=== PATIENT | male | born 1960 | race Caucasian/White ===

== ENCOUNTER 2016-05-16 12:40 | Outpatient (CLI) | payer OTHER | END 2016-05-16 12:41 | disposition home or self-care (01) | DX: D64.9 Anemia, unspecified (principal); R10.9 Unspecified abdominal pain; G89.29 Other chronic pain; E55.9 Vitamin D deficiency, unspecified; K50.90 Crohn's disease, unspecified, without complications ==

== ENCOUNTER 2016-08-13 09:25 | Outpatient (CLI) | payer OTHER | END 2016-08-13 23:59 | DX: E55.9 Vitamin D deficiency, unspecified (principal); G89.4 Chronic pain syndrome; R73.01 Impaired fasting glucose; K50.90 Crohn's disease, unspecified, without complications; I50.9 Heart failure, unspecified; I10 Essential (primary) hypertension ==

== ENCOUNTER 2016-12-08 09:11 | Outpatient (CLI) | payer OTHER ==
[2016-12-08 12:51] LABS: ALBUMIN/GLOBULIN RATIO 1.2 (1.0-2.2); BILIRUBIN,TOTAL 1.1 mg/dL (0.2-1.0); BUN - BLOOD UREA NITROGEN 16 mg/dL (6-20); CALCIUM 9.4 mg/dL (8.5-10.3); CARBON DIOXIDE - CO2 26 mmol/L (21-32); CHLORIDE 100 mmol/L (101-111); CHOL/HDL RATIO 4.5 (<5.0); CHOLESTEROL 143 mg/dL; CREATININE 1.1 mg/dL (0.6-1.2); GFR - MDRD 69 (>89); GLUCOSE 100 mg/dL (70-100); HDL CHOLESTEROL 32 mg/dL; LDL/HDL RATIO 1.9 (<3.6); POTASSIUM 4.1 mmol/L (3.5-5.0); SODIUM 135 mmol/L (135-145); TRIGLYCERIDES 257 mg/dL; VLDL CHOLESTEROL 51 mg/dL
[2016-12-08 17:46] LABS: HEMOGLOBIN A1C 0.63 g/dL
== END 2016-12-08 09:12 | disposition home or self-care (01) ==
LOC: LAB.WCP 09:11
PROVIDERS: ATTEND Family Medicine
DX: G89.4 Chronic pain syndrome (principal); E55.9 Vitamin D deficiency, unspecified; R73.01 Impaired fasting glucose; I50.9 Heart failure, unspecified; I10 Essential (primary) hypertension
CPT/HCPCS: 36415; 80053; 80061; 82306; 83036

== ENCOUNTER 2017-03-11 11:09 | Outpatient (CLI) | payer OTHER ==
[2017-03-11 18:59] LABS: BASOPHILS # (AUTO) 0.1 10^3/uL (0.0-0.1); BASOPHILS % (AUTO) 1.2 %; EOSINOPHILS # (AUTO) 0.4 10^3/uL (0.0-0.7); EOSINOPHILS % (AUTO) 4.9 %; HGB - HEMOGLOBIN 16.1 g/dL (14.0-18.0); LYMPHOCYTES # (AUTO) 3.4 10^3/uL (1.5-3.5); LYMPHOCYTES % (AUTO) 44.2 %; MEAN CORPUSCULAR HEMOGLOBIN 32.9 pg (27.0-31.0); MEAN CORPUSCULAR HGB CONC 33.4 g/dL (32.0-36.0); MEAN CORPUSCULAR VOLUME 98.2 fL (80.0-94.0); MEAN PLATELET VOLUME 10.5 fL (7.4-11.4); MONOCYTES # (AUTO) 0.8 10^3/uL (0.0-1.0); MONOCYTES % (AUTO) 10.8 %; NEUTROPHILS % (AUTO) 38.9 %; NUCLEATED RED BLOOD CELLS AUTO 0.2 /100WBC; RED BLOOD COUNT 4.89 10^6/uL (4.70-6.10); RED CELL DISTRIBUTION WIDTH 14.2 % (12.0-15.0); UNCORRECTED WHITE BLOOD COUNT 7.7 x10^3/uL; WHITE BLOOD COUNT 7.7 x10^3/uL (4.8-10.8)
[2017-03-11 19:21] LABS: ALBUMIN/GLOBULIN RATIO 1.1 (1.0-2.2); BILIRUBIN,TOTAL 0.8 mg/dL (0.2-1.0); CREATININE 1.1 mg/dL (0.6-1.2); POTASSIUM 4.4 mmol/L (3.5-5.0); TOTAL PROTEIN 7.5 g/dL (6.7-8.2); URIC ACID 7.7 mg/dL (2.6-7.2)
== END 2017-03-11 11:10 | disposition home or self-care (01) ==
LOC: LAB.WCP 11:09
PROVIDERS: ATTEND Family Medicine
DX: I10 Essential (primary) hypertension (principal); E55.9 Vitamin D deficiency, unspecified; M10.9 Gout, unspecified; D64.9 Anemia, unspecified
CPT/HCPCS: 36415; 80053; 82306; 84550; 85025

== ENCOUNTER 2017-04-19 14:40 | Emergency (ER) | payer OTHER ==
[2017-04-19] MEDS ORDERED: ALBUTEROL NEB 2.5 MG/3 ML INH STA (15:20)
--- NOTE | 2017-04-19 15:22 | ED Physician Documentation ---
PD HPI URI - Stated complaint Stated Complaint: COUGH,CONGESTION,SOA,CHEST TIGHTNESS - Chief complaint Chief Complaint: Resp - History obtained from History obtained from: Patient - History of Present Illness Timing - onset: Other (Sick for 3 days with productive cough, green sputum, shortness of breath and wheezing. No fevers or chills but he has had some body aches and nasal congestion. He is on Remicade for Crohn's disease.) Review of Systems Constitutional: reports: Fatigue. denies: Fever, Chills Ears: denies: Ear pain Nose: reports: Rhinorrhea / runny nose, Congestion, Sinus pressure / pain Throat: denies: Sore throat Respiratory: reports: Dyspnea, Cough, Wheezing. denies: Hemoptysis PD PAST MEDICAL HISTORY - Past Medical History Cardiovascular: Congestive heart failure, Hypertension GI: Crohn's disease : Kidney stones - Past Surgical History Past Surgical History: Yes General: Cholecystectomy, Bowel surgery - Present Medications Home Medications: Ambulatory Orders Medication Instructions Recorded Confirmed Atenolol 100 mg PO DAILY 10/13/12 12/13/15 Cholecalciferol (Vitamin D3) 50,000 unit PO ONCE 10/13/12 12/13/15 [Vitamin D-3] Cyanocobalamin [Vitamin B-12] 1,000 mcg IM ONCE 10/13/12 12/13/15 Furosemide [Lasix] 40 mg PO DAILY PRN 10/13/12 12/13/15 Lisinopril 40 mg PO DAILY 10/13/12 12/13/15 Oxycodone HCl [Oxycontin] 10 mg PO BID 10/13/12 12/13/15 oxyCODONE [Roxicodone] 5 - 10 mg PO Q4-6H PRN 10/13/12 12/13/15 Felodipine [Felodipine ER] 1 tab PO DAILY 12/13/15 12/13/15 Albuterol Sulfate [Proventil Hfa 1 - 2 puffs IH Q4H PRN #1 04/19/17 Inhaler] hfa.aer.ad Doxycycline Hyclate 100 mg PO BID #20 tablet 04/19/17 guaiFENesin/CODEINE [Robitussin AC] 5 - 10 ml PO Q6H PRN #120 ml 04/19/17 predniSONE [Deltasone] 60 mg PO DAILY 5 Days tablet 04/19/17 - Allergies Allergies/Adverse Reactions: Allergies Allergy/AdvReac Type Severity Reaction Status Date / Time No Known Drug Allergies Allergy Verified 10/13/12 16:46 - Social History Does the pt smoke?: No Smoking Status: Never smoker Does the pt drink ETOH?: Yes Does the pt have substance abuse?: No - Immunizations Immunizations are current?: Yes PD ED PE NORMAL - Vitals Vital signs reviewed: Yes - General General: Alert and oriented X 3, No acute distress - HEENT HEENT: PERRL, EOMI, Ears normal, Moist mucous membranes, Pharynx benign - Neck Neck: Supple, no meningeal sign, No bony TTP - Cardiac Cardiac: RRR, No murmur - Respiratory Respiratory: No respiratory distress, Other (Diffuse moderate wheezes with good air motion.) - Abdomen Abdomen: Non tender - Neuro Neuro: Alert and oriented X 3, Normal speech - Psych Psych: Normal mood, Normal affect Results - Vitals Vitals: Vital Signs - 24 hr 04/19/17 14:59 Temperature 36.6 C Heart Rate 79 Respiratory 22 Rate Blood Pressure 135/83 H O2 Saturation 97 Oxygen O2 Source Nasal cannula PD MEDICAL DECISION MAKING - ED course ED course: 56-year-old gentleman, functionally immune compromise from the Remicade with URI symptoms and diffuse wheezing, because of his history we will place on antibiotics because of the immune suppression. Also steroids, beta agonist and cough syrup. Departure - Departure Disposition: 01 Home, Self Care Clinical Impression: Immunosuppression, Bronchitis Condition: Good Record reviewed to determine appropriate education?: Yes Instructions: ED Bronchitis Asthmatic Prescriptions: Albuterol Sulfate [Proventil Hfa Inhaler] 1 - 2 puffs IH Q4H PRN #1 hfa.aer.ad PRN Reason: Cough Doxycycline Hyclate 100 mg PO BID #20 tablet guaiFENesin/CODEINE [Robitussin AC] 5 - 10 ml PO Q6H PRN #120 ml PRN Reason: Cough predniSONE [Deltasone] 60 mg PO DAILY 5 Days tablet Comments: Call your doctor to arrange a follow-up appointment, make the next available appointment. In the interim, return anytime if worse or if new symptoms develop. Your blood pressure was elevated today on check into the emergency department. This does not mean that you have hypertension, it is a common phenomenon to come to the emergency department and have elevated blood pressure. I recommend that you see your primary care physician within the week to have it rechecked when you are feeling better.
[2017-04-19 15:53] VITALS: BP 141/90
== END 2017-04-19 15:55 | disposition home or self-care (01) ==
LOC: ED 14:40
DX: J40 Bronchitis, not specified as acute or chronic (principal); D89.9 Disorder involving the immune mechanism, unspecified; I11.0 Hypertensive heart disease with heart failure; I50.9 Heart failure, unspecified
CPT/HCPCS: 94640; 94664; 99283; J7613

== ENCOUNTER 2017-08-28 08:18 | Outpatient (CLI) | payer OTHER ==
[2017-08-28 12:35] LABS: BASOPHILS # (AUTO) 0.1 10^3/uL (0.0-0.1); BASOPHILS % (AUTO) 0.9 %; EOSINOPHILS # (AUTO) 0.5 10^3/uL (0.0-0.7); EOSINOPHILS % (AUTO) 7.2 %; LYMPHOCYTES # (AUTO) 3.1 10^3/uL (1.5-3.5); LYMPHOCYTES % (AUTO) 46.6 %; MEAN CORPUSCULAR HEMOGLOBIN 32.8 pg (27.0-31.0); MEAN CORPUSCULAR HGB CONC 33.6 g/dL (32.0-36.0); MEAN CORPUSCULAR VOLUME 97.4 fL (80.0-94.0); MEAN PLATELET VOLUME 11.2 fL (7.4-11.4); MONOCYTES # (AUTO) 0.7 10^3/uL (0.0-1.0); NEUTROPHILS # (AUTO) 2.4 10^3/uL (1.5-6.6); NEUTROPHILS % (AUTO) 35.3 %; PLT - PLATELET COUNT 143 10^3/uL (130-450); RED CELL DISTRIBUTION WIDTH 13.1 % (12.0-15.0); WHITE BLOOD COUNT 6.7 x10^3/uL (4.8-10.8)
[2017-08-28 13:14] LABS: HB2 TOTAL 17.8 g/dL; HEMOGLOBIN A1C 0.56 g/dL
[2017-08-28 14:33] LABS: ALBUMIN 4.2 g/dL (3.2-5.5); ALBUMIN/GLOBULIN RATIO 1.3 (1.0-2.2); ALKALINE PHOSPHATASE 55 IU/L (42-121); ALT ALANINE AMINOTRANSFERASE 30 IU/L (10-60); AST ASPARTATE AMINOTRANSFERASE 32 IU/L (10-42); BILIRUBIN,TOTAL 1.3 mg/dL (0.2-1.0); BUN - BLOOD UREA NITROGEN 19 mg/dL (6-20); CALCIUM 9.2 mg/dL (8.5-10.3); CARBON DIOXIDE - CO2 26 mmol/L (21-32); CHLORIDE 98 mmol/L (101-111); CHOL/HDL RATIO 3.7 (<5.0); CHOLESTEROL 106 mg/dL; GFR - MDRD 77 (>89); GLUCOSE 90 mg/dL (70-100); HDL CHOLESTEROL 29 mg/dL; LDL CHOLESTEROL,CALCULATED 35 mg/dL; LDL/HDL RATIO 1.2 (<3.6); SODIUM 131 mmol/L (135-145); TOTAL PROTEIN 7.5 g/dL (6.7-8.2); VLDL CHOLESTEROL 42 mg/dL
== END 2017-08-28 08:19 | disposition home or self-care (01) ==
LOC: LAB.WCP 08:18
PROVIDERS: ATTEND Family Medicine
DX: Z00.00 Encounter for general adult medical examination without abnormal findings (principal); I10 Essential (primary) hypertension; R73.01 Impaired fasting glucose; G62.9 Polyneuropathy, unspecified; Z12.5 Encounter for screening for malignant neoplasm of prostate; D64.9 Anemia, unspecified
CPT/HCPCS: 36415; 80053; 80061; 83036; 83721; 84153; 85025

== ENCOUNTER 2017-11-07 15:02 | Emergency (ER) | payer OTHER ==
[2017-11-07] MEDS ORDERED: SODIUM CHLORIDE 0.9% 1,000 ML IV ONE ×2 (15:20→17:39)
[2017-11-07] MEDS ORDERED: LACTATED RINGERS 1,000 ML IV STA (15:20)
--- NOTE | 2017-11-07 15:22 | ED Physician Documentation ---
PD HPI ABD PAIN - Stated complaint Stated Complaint: DIZZY/LIGHT HEADED/SEVERE THIRST - Chief complaint Chief Complaint: Abd Pain - History obtained from History obtained from: Patient - History of Present Illness Timing - onset: Other (This is a 57-year-old gentleman with Crohn's disease who about 6 days ago started to have increased epigastric pain and diarrhea. He had a friend who got sick around the same time with diarrhea but was only sick for about 2 days. There is a little nausea with it but no significant vomiting and no fevers. He feels like it is less severe than prior Crohn's flares. No recent travel. Now he is worried because every time he stands up he gets dizzy and is nearly falling from the dizziness.) Review of Systems Constitutional: reports: Fatigue. denies: Fever, Chills GI: reports: Abdominal Pain, Nausea, Diarrhea. denies: Vomiting, Constipation, Hematemesis, Bloody / black stool : denies: Dysuria, Frequency PD PAST MEDICAL HISTORY - Past Medical History Cardiovascular: Congestive heart failure, Hypertension GI: Crohn's disease : Kidney stones - Past Surgical History Past Surgical History: Yes General: Cholecystectomy, Bowel surgery - Present Medications Home Medications: Ambulatory Orders Medication Instructions Recorded Confirmed Atenolol 100 mg PO DAILY 10/13/12 12/13/15 Cholecalciferol (Vitamin D3) 50,000 unit PO ONCE 10/13/12 12/13/15 [Vitamin D-3] Cyanocobalamin [Vitamin B-12] 1,000 mcg IM ONCE 10/13/12 12/13/15 Furosemide [Lasix] 40 mg PO DAILY PRN 10/13/12 12/13/15 Lisinopril 40 mg PO DAILY 10/13/12 12/13/15 Oxycodone HCl [Oxycontin] 10 mg PO BID 10/13/12 12/13/15 oxyCODONE [Roxicodone] 5 - 10 mg PO Q4-6H PRN 10/13/12 12/13/15 Felodipine [Felodipine ER] 1 tab PO DAILY 12/13/15 12/13/15 Albuterol Sulfate [Proventil Hfa 1 - 2 puffs IH Q4H PRN #1 04/19/17 Inhaler] hfa.aer.ad Doxycycline Hyclate 100 mg PO BID #20 tablet 04/19/17 Loperamide [Imodium] 2 mg PO QID PRN #10 capsule 11/07/17 predniSONE [Deltasone] 20 mg PO [id number] #21 tab 11/07/17 - Allergies Allergies/Adverse Reactions: Allergies Allergy/AdvReac Type Severity Reaction Status Date / Time No Known Drug Allergies Allergy Verified 11/07/17 15:10 - Social History Does the pt smoke?: No Smoking Status: Never smoker Does the pt drink ETOH?: Yes Does the pt have substance abuse?: No - Family History Family history: reports: Non contributory - Immunizations Immunizations are current?: Yes PD ED PE NORMAL - Vitals Vital signs reviewed: Yes - General General: Alert and oriented X 3, No acute distress - HEENT HEENT: Other (Dry mucous membranes) - Cardiac Cardiac: RRR, No murmur - Respiratory Respiratory: No respiratory distress, Clear bilaterally - Abdomen Abdomen: Normal bowel sounds, Soft, Non tender, Other (Ex lap and cholecystectomy scars) - Derm Derm: Normal color, Warm and dry, No rash - Extremities Extremities: No edema, No calf tenderness / cord - Neuro Neuro: Alert and oriented X 3, Normal speech Results - Vitals Vitals: Vital Signs - 24 hr 11/07/17 11/07/17 15:07 16:57 Temperature 36.4 C L Heart Rate 87 66 Respiratory 16 14 Rate Blood Pressure 174/153 H 110/59 L O2 Saturation 98 98 Oxygen O2 Source Room air - Labs Labs: Laboratory Tests 11/07/17 11/07/17 15:46 15:46 WBC 9.9 RBC 4.67 L Hgb 15.3 Hct 44.7 MCV 95.6 H MCH 32.8 H MCHC 34.3 RDW 12.4 Plt Count 178 MPV 9.6 Neut # (Auto) 6.6 Lymph # (Auto) 1.6 Page # (Auto) 1.5 H Eos # (Auto) 0.1 Baso # (Auto) 0.0 Absolute Nucleated RBC 0.01 Nucleated RBC % 0.1 Sodium 128 L Potassium 3.7 Chloride 92 L Carbon Dioxide 27 Anion Gap 9.0 BUN 34 H Creatinine 2.0 H Estimated GFR (MDRD) 34 L Glucose 133 H Calcium 9.3 Magnesium 1.6 L Total Bilirubin 1.4 H AST 21 ALT 23 Alkaline Phosphatase 68 Total Protein 7.8 Albumin 3.7 Globulin 4.1 Albumin/Globulin Ratio 0.9 L Lipase 24 PD MEDICAL DECISION MAKING - ED course ED course: 57-year-old gentleman with history of Crohn's disease presents with an apparent flare with 5 days of diarrhea. Also might be a viral illness, less likely given the time course. Unlikely be bacterial given the lack of stomach pain or fever or white count. Labs as shown with prerenal azotemia and a creatinine bump from his baseline of 1.0-2.0. He was administered 3 L of IV fluids with symptomatic and significant improvement in his symptoms. He was offered observation in the hospital but plans to follow closely with his physician in a few days for recheck and probably will need repeat labs then 2. - Sepsis Event Vital Signs: Vital Signs - 24 hr 11/07/17 11/07/17 15:07 16:57 Temperature 36.4 C L Heart Rate 87 66 Respiratory 16 14 Rate Blood Pressure 174/153 H 110/59 L O2 Saturation 98 98 Oxygen O2 Source Room air Departure - Departure Disposition: 01 Home, Self Care Clinical Impression: Dehydration Diarrhea Qualifiers: Diarrhea type: unspecified type Qualified Code(s): R19.7 - Diarrhea, unspecified Acute Crohn's disease Qualifiers: Digestive disease complication type: other complication Qualified Code(s): K50.918 - Crohn's disease, unspecified, with other complication Condition: Good Record reviewed to determine appropriate education?: Yes Instructions: Disease Crohn Dc Prescriptions: Loperamide [Imodium] 2 mg PO QID PRN #10 capsule PRN Reason: Diarrhea predniSONE [Deltasone] 20 mg PO [id number] #21 tab Comments: Stop your lisinopril and lasix for now, follow-up with Dr. Munoz as scheduled in a few days and I suspect he will want to do repeat labs based on a creatinine of 2.0 today and BUN of 34. Return if worsening. Discharge Date/Time: 11/07/17 18:48
[2017-11-07 15:59] LABS: BASOPHILS % (AUTO) 0.5 %; EOSINOPHILS # (AUTO) 0.1 10^3/uL (0.0-0.7); HGB - HEMOGLOBIN 15.3 g/dL (14.0-18.0); LYMPHOCYTES # (AUTO) 1.6 10^3/uL (1.5-3.5); LYMPHOCYTES % (AUTO) 16.4 %; MEAN CORPUSCULAR HEMOGLOBIN 32.8 pg (27.0-31.0); MEAN CORPUSCULAR HGB CONC 34.3 g/dL (32.0-36.0); MEAN CORPUSCULAR VOLUME 95.6 fL (80.0-94.0); MEAN PLATELET VOLUME 9.6 fL (7.4-11.4); MONOCYTES # (AUTO) 1.5 10^3/uL (0.0-1.0); NEUTROPHILS # (AUTO) 6.6 10^3/uL (1.5-6.6); NEUTROPHILS % (AUTO) 67.1 %; PLT - PLATELET COUNT 178 10^3/uL (130-450); RED BLOOD COUNT 4.67 10^6/uL (4.70-6.10); RED CELL DISTRIBUTION WIDTH 12.4 % (12.0-15.0); WHITE BLOOD COUNT 9.9 x10^3/uL (4.8-10.8)
[2017-11-07 16:13] LABS: ALBUMIN 3.7 g/dL (3.2-5.5); ALBUMIN/GLOBULIN RATIO 0.9 (1.0-2.2); BILIRUBIN,TOTAL 1.4 mg/dL (0.2-1.0); CALCIUM 9.3 mg/dL (8.5-10.3); MAGNESIUM 1.6 mg/dL (1.7-2.8); TOTAL PROTEIN 7.8 g/dL (6.7-8.2)
[2017-11-07 16:58] VITALS: BP 110/59
== END 2017-11-07 18:48 | disposition home or self-care (01) ==
LOC: ED 15:02
DX: K50.918 Crohn's disease, unspecified, with other complication (principal); E86.0 Dehydration; R19.7 Diarrhea, unspecified; I10 Essential (primary) hypertension; R79.9 Abnormal finding of blood chemistry, unspecified
CPT/HCPCS: 36415; 80053; 83690; 83735; 85025; 96360; 96361; 99283; 99284; J7120

== ENCOUNTER 2017-11-10 13:13 | Outpatient (CLI) | payer OTHER ==
[2017-11-10 19:03] LABS: ALBUMIN 3.5 g/dL (3.2-5.5); ALBUMIN/GLOBULIN RATIO 0.9 (1.0-2.2); CREATININE 1.1 mg/dL (0.6-1.2); TOTAL PROTEIN 7.6 g/dL (6.7-8.2)
== END 2017-11-10 13:14 | disposition home or self-care (01) ==
LOC: LAB.WCP 13:13
PROVIDERS: ATTEND Family Medicine
DX: K50.90 Crohn's disease, unspecified, without complications (principal)
CPT/HCPCS: 36415; 80053

== ENCOUNTER 2018-01-11 09:24 | Outpatient (CLI) | payer OTHER ==
[2018-01-11 14:14] LABS: BASOPHILS % (AUTO) 0.7 %; EOSINOPHILS # (AUTO) 0.4 10^3/uL (0.0-0.7); EOSINOPHILS % (AUTO) 7.2 %; HGB - HEMOGLOBIN 16.1 g/dL (14.0-18.0); LYMPHOCYTES # (AUTO) 2.3 10^3/uL (1.5-3.5); LYMPHOCYTES % (AUTO) 40.1 %; MEAN CORPUSCULAR HEMOGLOBIN 33.2 pg (27.0-31.0); MEAN CORPUSCULAR HGB CONC 33.9 g/dL (32.0-36.0); MEAN PLATELET VOLUME 10.3 fL (7.4-11.4); MONOCYTES # (AUTO) 0.6 10^3/uL (0.0-1.0); MONOCYTES % (AUTO) 10.2 %; NEUTROPHILS # (AUTO) 2.4 10^3/uL (1.5-6.6); NEUTROPHILS % (AUTO) 41.8 %; PLT - PLATELET COUNT 126 10^3/uL (130-450); RED BLOOD COUNT 4.85 10^6/uL (4.70-6.10); RED CELL DISTRIBUTION WIDTH 13.7 % (12.0-15.0); WHITE BLOOD COUNT 5.8 x10^3/uL (4.8-10.8)
[2018-01-11 14:38] LABS: HB2 TOTAL 17.3 g/dL; HEMOGLOBIN A1C 0.54 g/dL
[2018-01-11 14:42] LABS: ALBUMIN 3.8 g/dL (3.2-5.5); BILIRUBIN,TOTAL 0.9 mg/dL (0.2-1.0); CALCIUM 9.7 mg/dL (8.5-10.3); CREATININE 1.1 mg/dL (0.6-1.2); TOTAL PROTEIN 7.5 g/dL (6.7-8.2)
== END 2018-01-11 09:25 | disposition home or self-care (01) ==
LOC: LAB.WCP 09:24
PROVIDERS: ATTEND Family Medicine
DX: R73.01 Impaired fasting glucose (principal); E55.9 Vitamin D deficiency, unspecified; I10 Essential (primary) hypertension; D64.9 Anemia, unspecified
CPT/HCPCS: 36415; 80053; 82306; 83036; 85025

== ENCOUNTER 2018-08-25 08:38 | Outpatient (CLI) | payer OTHER ==
--- NOTE | 2018-08-25 09:38 | CT Report ---
Reason: KIDNEY STONE,HEMATURIA Procedure Date: 08/25/2018 Accession Number: [id number] / [id number] Procedure: CT - Abdomen/Pelvis WO CPT Code: FULL RESULT: EXAM: CT ABDOMEN AND PELVIS (CT KUB) EXAM DATE: 08/25/2018 09:06 AM. CLINICAL HISTORY: Kidney stone, hematuria. COMPARISONS: ABDOMEN/PELVIS W/ 01/14/2016 11:25 AM. TECHNIQUE: Routine axial helical CT imaging was performed through the abdomen and pelvis without IV contrast. Reconstructions: Coronal and sagittal. In accordance with CT protocol optimization, one or more of the following dose reduction techniques were utilized for this exam: automated exposure control, adjustment of mA and/or KV based on patient size, or use of iterative reconstructive technique. FINDINGS: There is a nonobstructing 5 mm right renal calculus. There is a suggestion of asymmetric right-sided bladder wall thickening on noncontrast examination. The patient is status post cholecystectomy. Moderate atherosclerotic disease is noted. The noncontrast liver, spleen, adrenal glands, left kidney and pancreas are unremarkable with the exception of hepatosplenic calcifications bearing witness to prior granulomatous disease and a calcification within the pancreas which is nonspecific. There is no free air or free fluid and no bowel obstruction. There is no abdominopelvic lymphadenopathy by size criteria. IMPRESSION: Asymmetric thickening of the bladder wall is suspicious for malignancy in the setting of hematuria. Nonobstructing 5 mm right renal calculus. Recommendation: Direct visualization of the bladder by cystogram. DEANNA The call report notification system was initiated by Dr. Robbie Wynn at 09:36 AM on 08/25/2018. ADDENDUM: 08/25/18 10:33 The above call report findings were discussed with KHADAR Krishnan by Dr. Robbie Wynn at 10:33 AM on 08/25/2018.
== END 2018-08-25 08:39 | disposition home or self-care (01) ==
LOC: DI 08:38
PROVIDERS: ATTEND Family Medicine
DX: N20.0 Calculus of kidney (principal); R31.9 Hematuria, unspecified; N32.89 Other specified disorders of bladder
CPT/HCPCS: 74176

== ENCOUNTER 2018-10-15 10:42 | Outpatient (CLI) | payer OTHER ==
[2018-10-15 18:55] LABS: BASOPHILS % (AUTO) 0.5 %; EOSINOPHILS # (AUTO) 0.3 10^3/uL (0.0-0.7); EOSINOPHILS % (AUTO) 4.5 %; HGB - HEMOGLOBIN 16.2 g/dL (14.0-18.0); LYMPHOCYTES # (AUTO) 2.4 10^3/uL (1.5-3.5); LYMPHOCYTES % (AUTO) 36.3 %; MEAN CORPUSCULAR HGB CONC 31.5 g/dL (32.0-36.0); MEAN CORPUSCULAR VOLUME 101.4 fL (80.0-94.0); MEAN PLATELET VOLUME 12.3 fL (7.4-11.4); MONOCYTES # (AUTO) 0.6 10^3/uL (0.0-1.0); MONOCYTES % (AUTO) 8.8 %; NEUTROPHILS # (AUTO) 3.3 10^3/uL (1.5-6.6); NEUTROPHILS % (AUTO) 49.7 %; PLT - PLATELET COUNT 130 10^3/uL (130-450); RED BLOOD COUNT 5.07 10^6/uL (4.70-6.10); RED CELL DISTRIBUTION WIDTH 13.6 % (12.0-15.0); WHITE BLOOD COUNT 6.6 x10^3/uL (4.8-10.8)
[2018-10-15 19:32] LABS: ALBUMIN 4.1 g/dL (3.2-5.5); ALKALINE PHOSPHATASE 60 IU/L (42-121); ALT ALANINE AMINOTRANSFERASE 22 IU/L (10-60); AST ASPARTATE AMINOTRANSFERASE 24 IU/L (10-42); BILIRUBIN,TOTAL 1.1 mg/dL (0.2-1.0); BUN - BLOOD UREA NITROGEN 16 mg/dL (6-20); CALCIUM 9.6 mg/dL (8.5-10.3); CARBON DIOXIDE - CO2 24 mmol/L (21-32); CHLORIDE 102 mmol/L (101-111); CHOL/HDL RATIO 3.6 (<5.0); CHOLESTEROL 144 mg/dL; GFR - MDRD 76 (>89); GLUCOSE 116 mg/dL (70-100); HDL CHOLESTEROL 40 mg/dL; LDL CHOLESTEROL,CALCULATED 69 mg/dL; LDL/HDL RATIO 1.7 (<3.6); SODIUM 137 mmol/L (135-145); TOTAL PROTEIN 8.2 g/dL (6.7-8.2); VLDL CHOLESTEROL 35 mg/dL
[2018-10-15 20:05] LABS: HB2 TOTAL 17.2 g/dL; HEMOGLOBIN A1C 0.55 g/dL; HEMOGLOBIN A1C % 5.1 % (4.6-6.2)
== END 2018-10-15 10:43 | disposition home or self-care (01) ==
LOC: LAB.WCP 10:42
PROVIDERS: ATTEND Family Medicine
DX: Z00.00 Encounter for general adult medical examination without abnormal findings (principal); I10 Essential (primary) hypertension; R73.01 Impaired fasting glucose; D64.9 Anemia, unspecified; R00.2 Palpitations
CPT/HCPCS: 36415; 80053; 80061; 83036; 83721; 84443; 85025

== ENCOUNTER 2019-01-17 15:03 | Outpatient (CLI) | payer OTHER ==
--- NOTE | 2019-01-17 15:59 | XRAY Report ---
Reason: LEFT CERVICAL RADICULOPATHY Procedure Date: 01/17/2019 Accession Number: [id number] / [id number] Procedure: WCP - Cervical Spine 2 View CPT Code: FULL RESULT: EXAM: CERVICAL SPINE RADIOGRAPHY EXAM DATE: 01/17/2019 03:19 PM. CLINICAL HISTORY: Left arm radiculopathy and neck pain. COMPARISONS: None. TECHNIQUE: 3 views. FINDINGS: Alignment: There is loss of the normal cervical lordosis. No significant scoliosis. Bones: No subluxation. No evidence of vertebral compression fracture. Disks: Mild disk height narrowing at C4-C5, C5-C6, and C6-C7 with associated moderate anterior spondylosis. Facets: No significant facet arthropathy. Soft Tissues: Normal. No prevertebral soft tissue swelling. The visualized lung apices are clear. IMPRESSION: 1. Loss of normal cervical lordosis. 2. Moderate multilevel degenerative disk disease as discussed above. No evidence of subluxation. RADIA
== END 2019-01-17 23:59 | disposition home or self-care (01) ==
LOC: DI.WCP 15:03
PROVIDERS: ATTEND Family Medicine
DX: M50.321 Other cervical disc degeneration at C4-C5 level (principal)
CPT/HCPCS: 72040

== ENCOUNTER 2019-05-11 23:26 | Emergency (ER) | payer OTHER ==
--- NOTE | 2019-05-12 00:06 | ED Physician Documentation ---
History of Present Illness - Stated complaint Stated Complaint: FLU LIKE SYMPTOMS - Chief complaint Chief Complaint: General - History obtained from History obtained from: Patient (Patient reports a 2-day history of cough and shortness of breath without wheezing, He also reports some mild chest discomfort and a worsening cough with fatimah brown-colored sputum. He also reports subjective fevers and chills he also reports severe dehydration. Is got a known history of Crohn's disease and is on Remicade is had a previous colectomy with colostomy and eventually re-anastomosis.He denies any fevers or rashes today.) Review of Systems Constitutional: reports: Reviewed and negative Eyes: reports: Reviewed and negative Ears: reports: Reviewed and negative Nose: reports: Reviewed and negative Throat: reports: Reviewed and negative Cardiac: reports: Reviewed and negative, Other (Chest discomfort) Respiratory: reports: Cough, Reviewed and negative GI: reports: Reviewed and negative : reports: Reviewed and negative Skin: reports: Reviewed and negative Musculoskeletal: reports: Reviewed and negative Neurologic: reports: Reviewed and negative Psychiatric: reports: Reviewed and negative Endocrine: reports: Reviewed and negative Immunocompromised: reports: Reviewed and negative PD PAST MEDICAL HISTORY - Past Medical History Past Medical History: Yes Cardiovascular: Congestive heart failure, Hypertension GI: Crohn's disease : Kidney stones - Past Surgical History Past Surgical History: Yes General: Cholecystectomy, Bowel surgery - Present Medications Home Medications: Ambulatory Orders Medication Instructions Recorded Confirmed Atenolol 100 mg PO DAILY 10/13/12 12/13/15 Cholecalciferol (Vitamin D3) 50,000 unit PO ONCE 10/13/12 12/13/15 [Vitamin D-3] Cyanocobalamin [Vitamin B-12] 1,000 mcg IM ONCE 10/13/12 12/13/15 Furosemide [Lasix] 40 mg PO DAILY PRN 10/13/12 12/13/15 Oxycodone HCl [Oxycontin] 10 mg PO BID 10/13/12 12/13/15 lisinopriL [Lisinopril] 40 mg PO DAILY 10/13/12 12/13/15 oxyCODONE [Roxicodone] 5 - 10 mg PO Q4-6H PRN 10/13/12 12/13/15 Felodipine [Felodipine ER] 1 tab PO DAILY 12/13/15 12/13/15 Albuterol Sulfate [Proventil Hfa 1 - 2 puffs IH Q4H PRN #1 04/19/17 Inhaler] hfa.aer.ad Doxycycline Hyclate 100 mg PO BID #20 tablet 04/19/17 Loperamide [Imodium] 2 mg PO QID PRN #10 capsule 11/07/17 predniSONE [Deltasone] 20 mg PO [id number] #21 tab 11/07/17 Oseltamivir Phosphate [Tamiflu] 75 mg PO BID #10 capsule 05/12/19 - Allergies Allergies/Adverse Reactions: Allergies Allergy/AdvReac Type Severity Reaction Status Date / Time No Known Drug Allergies Allergy Verified 05/11/19 23:37 - Social History Does the pt smoke?: No Smoking Status: Never smoker Does the pt drink ETOH?: Yes Does the pt have substance abuse?: No - Immunizations Immunizations are current?: Yes PD ED PE NORMAL - Vitals Vital signs reviewed: Yes - General General: Alert and oriented X 3, No acute distress - HEENT HEENT: PERRL - Neck Neck: Supple, no meningeal sign - Cardiac Cardiac: RRR, No murmur - Respiratory Respiratory: Other (The patient's coughing diffusely on examination there is no obvious rales or crackles or wheezing there is no use of accessory muscles there is no signs of respiratory distress.) - Abdomen Abdomen: Normal bowel sounds, Soft, Non tender, Non distended - Derm Derm: Warm and dry - Extremities Extremities: No deformity - Neuro Neuro: Alert and oriented X 3 - Psych Psych: Normal mood, Normal affect Results - Vitals Vitals: Vital Signs - 24 hr 05/11/19 23:30 Temperature 36.8 C Heart Rate 100 Respiratory 16 Rate Blood Pressure 165/100 H O2 Saturation 95 Oxygen O2 Source Room air - Labs Labs: Laboratory Tests 05/12/19 05/12/19 05/12/19 00:07 00:55 00:55 WBC 3.7 L RBC 4.97 Hgb 16.2 Hct 48.1 MCV 96.8 H MCH 32.6 H MCHC 33.7 RDW 12.8 Plt Count 111 L MPV 11.3 Neut # (Auto) 1.4 L Lymph # (Auto) 1.4 L [place] # (Auto) 0.8 Eos # (Auto) 0.0 Baso # (Auto) 0.0 Absolute Nucleated RBC 0.00 Nucleated RBC % 0.0 PT 14.0 H INR 1.2 APTT 34.9 H Sodium Potassium Chloride Carbon Dioxide Anion Gap BUN Creatinine Estimated GFR (MDRD) Glucose Calcium Total Bilirubin AST ALT Alkaline Phosphatase Total Creatine Kinase B-Natriuretic Peptide Total Protein Albumin Globulin Albumin/Globulin Ratio Lipase Influenza A (Rapid) Negative Influenza B (Rapid) POSITIVE H 05/12/19 05/12/19 00:55 00:55 WBC RBC Hgb Hct MCV MCH MCHC RDW Plt Count MPV Neut # (Auto) Lymph # (Auto) [place] # (Auto) Eos # (Auto) Baso # (Auto) Absolute Nucleated RBC Nucleated RBC % PT INR APTT Sodium 133 L Potassium 3.7 Chloride 97 L Carbon Dioxide 26 Anion Gap 10.0 BUN 15 Creatinine 1.1 Estimated GFR (MDRD) 68 L Glucose 134 H Calcium 8.9 Total Bilirubin 0.8 AST 42 ALT 43 Alkaline Phosphatase 49 Total Creatine Kinase 391 H B-Natriuretic Peptide 7 Total Protein 8.3 H Albumin 4.2 Globulin 4.1 Albumin/Globulin Ratio 1.0 Lipase 20 L Influenza A (Rapid) Influenza B (Rapid) Departure - Departure Disposition: 01 Home, Self Care Clinical Impression: Influenza Condition: Good Instructions: ED Flu Follow-Up: Marietta Dye DO [Primary Care Provider] - Prescriptions: Oseltamivir Phosphate [Tamiflu] 75 mg PO BID #10 capsule
[2019-05-12] MEDS ORDERED: SODIUM CHLORIDE 0.9% 1,000 ML IV ONE (00:18)
[2019-05-12] MEDS ORDERED: OSELTAMIVIR 75 MG CAPSULE PO STA (00:39)
[2019-05-12 01:03] LABS: BASOPHILS % (AUTO) 0.5 %; EOSINOPHILS % (AUTO) 0.8 %; HGB - HEMOGLOBIN 16.2 g/dL (14.0-18.0); LYMPHOCYTES # (AUTO) 1.4 10^3/uL (1.5-3.5); LYMPHOCYTES % (AUTO) 37.2 %; MEAN CORPUSCULAR HEMOGLOBIN 32.6 pg (27.0-31.0); MEAN CORPUSCULAR HGB CONC 33.7 g/dL (32.0-36.0); MEAN CORPUSCULAR VOLUME 96.8 fL (80.0-94.0); MEAN PLATELET VOLUME 11.3 fL (7.4-11.4); MONOCYTES # (AUTO) 0.8 10^3/uL (0.0-1.0); MONOCYTES % (AUTO) 22.3 %; NEUTROPHILS # (AUTO) 1.4 10^3/uL (1.5-6.6); NEUTROPHILS % (AUTO) 38.9 %; PLT - PLATELET COUNT 111 10^3/uL (130-450); RED BLOOD COUNT 4.97 10^6/uL (4.70-6.10); RED CELL DISTRIBUTION WIDTH 12.8 % (12.0-15.0); WHITE BLOOD COUNT 3.7 x10^3/uL (4.8-10.8)
--- NOTE | 2019-05-12 01:04 | XRAY Report ---
Reason: cough chest pain Procedure Date: 05/12/2019 Accession Number: [id number] / [id number] Procedure: XR - Chest 2 View X-Ray CPT Code: 21619 Final Report FULL RESULT: EXAM: CHEST RADIOGRAPHY EXAM DATE: 05/12/2019 12:52 AM. CLINICAL HISTORY: Cough chest pain. COMPARISON: CHEST 2 VIEW PA/LAT 07/13/2014 10:02 AM. TECHNIQUE: 2 views. FINDINGS: Lungs/Pleura: No alveolar consolidation or pleural effusion seen. No pneumothorax. Mediastinum: Heart and mediastinal contours are unremarkable. Other: None. IMPRESSION: 1. No acute abnormality seen in the chest. RADIA
[2019-05-12 01:07] LABS: INR 1.2 (0.8-1.2)
[2019-05-12 01:14] LABS: PARTIAL THROMBOPLASTIN TIME 34.9 secs (24.9-33.3)
[2019-05-12 01:15] LABS: ALBUMIN 4.2 g/dL (3.2-5.5); BILIRUBIN,TOTAL 0.8 mg/dL (0.2-1.0); CALCIUM 8.9 mg/dL (8.5-10.3); CREATININE 1.1 mg/dL (0.6-1.2); TOTAL PROTEIN 8.3 g/dL (6.7-8.2)
[2019-05-12 02:40] VITALS: BP 164/81
== END 2019-05-12 02:30 | disposition home or self-care (01) ==
LOC: ED 23:26
DX: J11.1 Influenza due to unidentified influenza virus with other respiratory manifestations (principal); I11.0 Hypertensive heart disease with heart failure; I50.9 Heart failure, unspecified
CPT/HCPCS: 36415; 71046; 80053; 82550; 83690; 83880; 85025; 85610; 85730; 87275; 87276; 96360; 99284; A9270; 84484

== ENCOUNTER 2023-11-10 09:41 | Outpatient (CLI) | payer MEDICARE, OTHER ==
[2023-11-10 10:13] LABS: BASOPHILS % (AUTO) 0.5 %; EOSINOPHILS # (AUTO) 0.3 10^3/uL (0.0-0.7); EOSINOPHILS % (AUTO) 3.1 %; HCT - HEMATOCRIT 52.4 % (42.0-52.0); LYMPHOCYTES # (AUTO) 3.2 10^3/uL (1.5-3.5); LYMPHOCYTES % (AUTO) 39.9 %; MEAN CORPUSCULAR HEMOGLOBIN 31.7 pg (27.0-31.0); MEAN CORPUSCULAR HGB CONC 32.4 g/dL (32.0-36.0); MEAN CORPUSCULAR VOLUME 97.6 fL (80.0-94.0); MONOCYTES # (AUTO) 0.8 10^3/uL (0.0-1.0); MONOCYTES % (AUTO) 9.3 %; NEUTROPHILS # (AUTO) 3.8 10^3/uL (1.5-6.6); PLT - PLATELET COUNT 134 10^3/uL (130-450); RED BLOOD COUNT 5.37 10^6/uL (4.70-6.10); RED CELL DISTRIBUTION WIDTH 12.9 % (12.0-15.0); WHITE BLOOD COUNT 8.1 x10^3/uL (4.8-10.8)
[2023-11-10 10:30] LABS: ALBUMIN 4.5 g/dL (3.2-5.5); ALBUMIN/GLOBULIN RATIO 1.3 (1.0-2.2); ALKALINE PHOSPHATASE 68 IU/L (42-121); ALT ALANINE AMINOTRANSFERASE 18 IU/L (10-60); AST ASPARTATE AMINOTRANSFERASE 19 IU/L (10-42); BILIRUBIN,TOTAL 1.2 mg/dL (0.2-1.0); BUN - BLOOD UREA NITROGEN 17 mg/dL (6-20); CARBON DIOXIDE - CO2 29 mmol/L (21-32); CHLORIDE 102 mmol/L (101-111); CHOL/HDL RATIO 3.2 (<5.0); CHOLESTEROL 119 mg/dL; GFR - MDRD 75 (>89); GLUCOSE 155 mg/dL (74-104); HDL CHOLESTEROL 37 mg/dL; LDL CHOLESTEROL,CALCULATED 57 mg/dL; LDL/HDL RATIO 1.5 (<3.6); SODIUM 138 mmol/L (135-145); TOTAL PROTEIN 7.9 g/dL (6.4-8.9); TRIGLYCERIDES 127 mg/dL; VLDL CHOLESTEROL 25 mg/dL
[2023-11-10 10:42] LABS: ESTIMATED AVERAGE GLUCOSE 117 mg/dL (70-100); HEMOGLOBIN A1c% 5.7 % (4.27-6.07); THYROID STIMULATING HORMONE 0.61 uIU/mL (0.34-5.60)
== END 2023-11-10 09:42 | disposition home or self-care (01) ==
LOC: LAB 09:41
DX: Z00.00 Encounter for general adult medical examination without abnormal findings (principal); I10 Essential (primary) hypertension
CPT/HCPCS: 36415; 80053; 80061; 83036; 83721; 84153; 84443; 85025

== ENCOUNTER 2023-12-17 11:03 | Outpatient (CLI) | payer MEDICARE, OTHER ==
[2023-12-17 12:05] LABS: FERRITIN 220.4 ng/mL (23.9-336.2)
[2023-12-18 07:11] LABS: VITAMIN D 25-HYDROXY 8.7 ng/mL (30.0-100.0)
== END 2023-12-17 11:04 | disposition home or self-care (01) ==
LOC: LAB 11:03
PROVIDERS: ATTEND Internal Medicine Gastroenterology
DX: K50.812 Crohn's disease of both small and large intestine with intestinal obstruction (principal)
CPT/HCPCS: 36415; 81599; 82306; 82607; 82728; 82746; 83540; 84630